=== PATIENT | male | born 1980 | race Caucasian/White ===

== ENCOUNTER 2020-05-18 10:45 | Emergency (ER) | payer BC ==
--- NOTE | 2020-05-18 11:23 | EDM.PDOC ---
ED HPI GENERAL MEDICAL PROBLEM - General Chief Complaint: Cardiovascular Problem Stated Complaint: INCREAST HEART RATE Time Seen by Provider: 05/18/20 11:00 Source of Information: Reports: Patient History Limitations: Reports: No Limitations - History of Present Illness INITIAL COMMENTS - FREE TEXT/NARRATIVE: Patient presented to the ED because of palpitations. He woke up this morning and his pulse was 120.s, Denies any dyspnea, N/V but he was diaphoretic. No cough/cold, fever, chills. - Related Data Allergies Allergy/AdvReac Type Severity Reaction Status Date / Time No Known Allergies Allergy Verified 07/16/16 14:32 Home Meds: Home Meds NK [No Known Home Meds] 05/18/20 [History] ED ROS GENERAL - Review of Systems Review Of Systems: See Below Constitutional: Reports: No Symptoms HEENT: Reports: No Symptoms Respiratory: Reports: No Symptoms Cardiovascular: Reports: Palpitations Endocrine: Reports: No Symptoms GI/Abdominal: Reports: No Symptoms : Reports: No Symptoms Musculoskeletal: Reports: No Symptoms Skin: Reports: No Symptoms Neurological: Reports: No Symptoms ED EXAM, GENERAL - Physical Exam Exam: See Below Exam Limited By: No Limitations General Appearance: Alert, No Apparent Distress Ears: Normal External Exam Nose: Normal Inspection, Normal Mucosa Throat/Mouth: Normal Inspection, Normal Lips Head: Atraumatic, Normocephalic Neck: Normal Inspection, Supple, Non-Tender, Full Range of Motion Respiratory/Chest: No Respiratory Distress, Lungs Clear, Normal Breath Sounds Cardiovascular: Normal Peripheral Pulses, Regular Rate, Rhythm, No Edema, No Gallop, Tachycardia GI/Abdominal: Normal Bowel Sounds, Soft, Non-Tender, No Organomegaly Back Exam: Normal Inspection, Full Range of Motion Extremities: Normal Inspection, Normal Range of Motion Neurological: Alert, Oriented, CN II-XII Intact, Normal Cognition Course - Vital Signs Text/Narrative:: Labs/EKG was discussed with patient EKG-NSR Trop-neg Last Recorded V/S: Last Vital Signs Temp 36.2 C 05/18/20 11:04 Pulse 98 05/18/20 11:04 Resp 19 05/18/20 11:04 BP 109/78 05/18/20 11:04 Pulse Ox 100 05/18/20 11:04 - Orders/Labs/Meds Orders: Active Orders 24 hr Category Date Time Status EKG Documentation Completion [RC] ASDIRECTED Care 05/18/20 11:54 Active EKG 12 Lead [EK] Routine Ther 05/18/20 11:53 Ordered Labs: Laboratory Tests 05/18/20 05/18/20 05/18/20 Range/Units 11:15 11:15 11:15 WBC 12.0 H (3.2-10.1) x10-3/uL RBC 4.63 (3.90-5.90) x10(6)uL Hgb 13.7 (12.9-17.7) g/dL Hct 40.8 (38.3-50.1) % MCV 88.2 (80.8-98.7) fL MCH 29.6 (27.0-33.3) pg MCHC 33.5 (28.7-35.3) g/dL RDW 12.8 (12.4-15.0) % Plt Count 467 (117-477) x10(3)uL MPV 6.8 (6.7-11.0) fL Neut % (Auto) 73.2 H (40.3-71.8) % Lymph % (Auto) 13.3 L (15.8-45.3) % Valley % (Auto) 12.3 (5.5-15.2) % Eos % (Auto) 0.6 (0.1-6.8) % Baso % (Auto) 0.6 (0.3-3.8) % Neut # (Auto) 8.8 H (1.7-6.9) x10-3/uL Lymph # (Auto) 1.6 (0.5-4.5) x10-3/uL Valley # (Auto) 1.5 H (0.0-1.2) x10-3/uL Eos # (Auto) 0.1 (0.0-0.6) x10-3/uL Baso # (Auto) 0.1 (0.0-0.3) x10-3/uL Sodium 133 L (135-145) mmol/L Potassium 4.2 (3.5-5.3) mmol/L Chloride 95 L (100-110) mmol/L Carbon Dioxide 26 (21-32) mmol/L BUN 13 (7-18) mg/dL Creatinine 1.2 (0.70-1.30) mg/dL Est Cr Clr Drug Dosing 61.68 mL/min Estimated GFR (MDRD) > 60 (>60) BUN/Creatinine Ratio 10.8 (9-20) Glucose 112 (80-116) mg/dL Calcium 9.4 (8.6-10.2) mg/dL Total Bilirubin 2.4 H (0.1-1.3) mg/dL AST 29 H (5-25) IU/L ALT 33 (12-36) U/L Alkaline Phosphatase 163 H (56-112) IU/L Troponin I 4.0 (4.0-60.3) pg/mL Total Protein 8.5 H (6.0-8.0) g/dL Albumin 3.6 (3.5-5.2) g/dL Globulin 4.9 g/dL Albumin/Globulin Ratio 0.7 Departure - Departure Time of Disposition: 12:15 Disposition: Home, Self-Care 01 Condition: Good Clinical Impression: Palpitations, Dehydration Referrals: Neftali Kenney PA [Primary Care Provider] - Forms: ED Department Discharge Additional Instructions: Please read discharge instructions on palpitations and dehydration Increase oral fluids Follow up as needed Sepsis Event Note (ED) - Evaluation Sepsis Screening Result: No Definite Risk - Focused Exam Vital Signs: Vital Signs Temp Pulse Resp BP Pulse Ox 05/18/20 11:04 36.2 C 98 19 109/78 100 - My Orders Last 24 Hours: My Active Orders 05/18/20 11:53 EKG 12 Lead [EK] Routine 05/18/20 11:54 EKG Documentation Completion [RC] ASDIRECTED - Assessment/Plan Last 24 Hours: My Active Orders 05/18/20 11:53 EKG 12 Lead [EK] Routine 05/18/20 11:54 EKG Documentation Completion [RC] ASDIRECTED
== END 2020-05-18 12:00 | disposition home or self-care (01) ==
LOC: FB.ED 10:45
DX: R00.2 Palpitations (principal); E86.0 Dehydration
CPT/HCPCS: 36415; 80053; 84484; 85025; 93005; 99283; 99285-25